=== PATIENT | male | born 1960 | race Caucasian/White ===

== ENCOUNTER → 2016-06-08 | Outpatient (CLI) | payer MEDICARE, MEDICAID | END | disposition home or self-care (01) | LOC: PCVCCLINIC 09:30 | PROVIDERS: ATTEND Internal Medicine | DX: I25.10 Atherosclerotic heart disease of native coronary artery without angina pectoris (principal); I50.30 Unspecified diastolic (congestive) heart failure; I10 Essential (primary) hypertension; E78.5 Hyperlipidemia, unspecified; E11.9 Type 2 diabetes mellitus without complications; I65.29 Occlusion and stenosis of unspecified carotid artery; I73.9 Peripheral vascular disease, unspecified | CPT/HCPCS: 80061; 93005; G0463 ==

== ENCOUNTER → 2016-12-08 | Outpatient (CLI) | payer MEDICARE, MEDICAID ==
--- NOTE | 2016-12-08 10:37 | PCVCIMAG ---
APPROVED REPORT Indications Stenosis Risk Factors Hypertension: Hyperlipidemia Diabetes, CAD Doppler Spectral Velocity Analysis PSV / EDVPSV / EDV ECA (R) 208 / 34 cm/sECA (L) 206 / 11 cm/s dICA (R) 70 / 26 cm/sdICA (L) 73 / 19 cm/s Roberto (R) 81 / 22 cm/smICA (L) 127 / 37 cm/s pICA (R) 130 / 40 cm/spICA (L) 164 / 42 cm/s Bulb (R) 55 / 16 cm/sBulb (L) 56 / 14 cm/s dCCA (R) 60 / 17 cm/sdCCA (L) 94 / 16 cm/s mCCA (R) 68 / 10 cm/smCCA (L) 84 / 15 cm/s Vert (R) 47 / 14 cm/sVert (L) 108 / 16 cm/s ICA/CCA 1.74 ICA/CCA 1.93 Basic Measurements Blood Pressure: Pulses: Right Left RightLeft Brachial(Sitting) 114/75dxIv277/76mmHgTemporal Real Time B-Mode Imaging Vert. (R)AntegradeVert. (L)Antegrade Findings The right carotid bulb has moderate calcified plaque. The right proximal internal carotid artery shows 60-70% stenosis. The right common carotid artery shows no significant stenosis. The right external carotid artery shows >50% stenosis. The left carotid bulb has moderate calcified plaque. The left proximal internal carotid artery shows 60-70% stenosis. The left common carotid artery shows no significant stenosis. The left external carotid artery shows >50% stenosis. Conclusion 1. Right internal carotid artery stenosis (60-70%) 2. Left internal carotid artery stenosis (60-70%) 3. Antegrade vertebral flow Similar to a study dated 2015
== END | disposition home or self-care (01) ==
LOC: PCVCIMAG 09:35
PROVIDERS: ATTEND Internal Medicine
DX: I65.23 Occlusion and stenosis of bilateral carotid arteries (principal); I25.10 Atherosclerotic heart disease of native coronary artery without angina pectoris; I11.0 Hypertensive heart disease with heart failure; I50.32 Chronic diastolic (congestive) heart failure; E78.5 Hyperlipidemia, unspecified; E11.9 Type 2 diabetes mellitus without complications; J44.9 Chronic obstructive pulmonary disease, unspecified; I49.3 Ventricular premature depolarization; I73.9 Peripheral vascular disease, unspecified; Z89.512 Acquired absence of left leg below knee; Z95.828 Presence of other vascular implants and grafts; Z79.82 Long term (current) use of aspirin; Z79.84 Long term (current) use of oral hypoglycemic drugs; Z87.891 Personal history of nicotine dependence; Z79.4 Long term (current) use of insulin; Z95.1 Presence of aortocoronary bypass graft
CPT/HCPCS: 80061; 93005; 93880; G0463